=== PATIENT | male | born 2000 | race Caucasian/White ===

== ENCOUNTER 2023-10-16 22:43 | Emergency (ER) | payer OTHER ==
[~2023-10-16] VITALS: Ht 177.8 cm; Wt 91.2 kg
[2023-10-17] MEDS ORDERED: METOCLOPRAMIDE 10MG TAB PO ONE (05:25)
[2023-10-17] MEDS ORDERED: KETOROLAC 60MG 2ML VIAL IM ONE (05:25)
[2023-10-17] MEDS ORDERED: REGL10TA6 PO (05:26)
[2023-10-17 06:20] LABS: BASO # 0.1 10^3/uL (0.0-0.2); BASO % 1.1 % (0.0-1.0); EOS % 11.6 % (0.0-3.0); HEMATOCRIT 42.5 % (42.0-52.0); HEMOGLOBIN 15.3 g/dl (13.5-17.5); LYMPH # 3.5 10^3/uL (1.5-5.0); LYMPH % 40.1 % (24.0-44.0); MONO # 0.8 10^3/uL (0.0-0.8); MONO % 8.7 % (2.0-8.0); NEUTROPHILS # 3.4 10^3/uL (1.5-8.5); NEUTROPHILS % 38.3 % (36.0-66.0); PLATELET COUNT, AUTOMATED 225 10^3/uL (150-450); RED BLOOD COUNT 4.94 10^6/uL (4.30-6.10); WHITE BLOOD COUNT 8.8 10^3/uL (4.0-10.0)
[2023-10-17 06:42] LABS: LIPASE 24 U/L (12-53)
[2023-10-17 06:44] LABS: ALBUMIN 4.1 G/DL (3.2-5.2); ALKALINE PHOSPHATASE 53 U/L (46-116); ALT/SGPT 14 U/L (7.0-40); AST/SGOT 23 U/L (<34); BILIRUBIN,DIRECT 0.1 MG/DL (<0.4); BILIRUBIN,TOTAL 0.3 MG/DL (0.3-1.2); BLOOD UREA NITROGEN 14 MG/DL (9-23); CARBON DIOXIDE LEVEL 29 MMOL/L (20-31); CHLORIDE LEVEL 107 MMOL/L (98-107); CREATININE FOR GFR 1.08 MG/DL (0.70-1.30); GLUCOSE, FASTING 91 MG/DL (60-100); POTASSIUM SERUM 4.1 MMOL/L (3.5-5.1); SODIUM LEVEL 141 MMOL/L (136-145); TOTAL PROTEIN 6.7 G/DL (5.7-8.2)
[2023-10-17 06:55] VITALS: BP 121/69; TEMP 98.3; O2SAT 99
== END 2023-10-17 06:59 | disposition home or self-care (01) ==
LOC: M ED 22:43
DX: R11.10 Vomiting, unspecified (principal); F17.200 Nicotine dependence, unspecified, uncomplicated; Y99.1 Military activity; Z79.899 Other long term (current) drug therapy
CPT/HCPCS: 80048; 80076; 83690; 85025; 96374; 99284; J1885

== ENCOUNTER 2024-03-22 17:39 | Emergency (ER) | payer OTHER ==
[~2024-03-22] VITALS: Ht 180.3 cm; Wt 87.9 kg
[~2024-03-22 17:39] MED LIST: REGL10TA6 PO
[2024-03-22 17:40] VITALS: BP 127/70; TEMP 98.9; O2SAT 96
[2024-03-22] MEDS: DERMABOND TOPICAL SKIN ADHESIVE TOP ONE (19:10)
== END 2024-03-22 19:25 | disposition home or self-care (01) ==
LOC: M ED 17:39
DX: S91.312A Laceration without foreign body, left foot, initial encounter (principal); Y92.9 Unspecified place or not applicable; Y93.9 Activity, unspecified; Y99.9 Unspecified external cause status